=== PATIENT | female | born 1985 | race Caucasian/White ===

== ENCOUNTER 2016-12-06 17:57 | Inpatient (IN) | payer BC ==
[2016-12-06] MEDS ORDERED: PRENATAL-U CAPS1 CAP PO (19:57)
[2016-12-06] MEDS ORDERED: PROBIOTIC1 EAC9 PO (19:57)
[2016-12-06] MEDS ORDERED: VITAMIN C1000 M1 PO (20:14)
[2016-12-06] MEDS ORDERED: VITAMIN D31000 UNI3 PO (20:14)
[2016-12-08] MEDS ORDERED: IBUPROFEN800 M1 PO (10:03)
== END 2016-12-08 12:10 | DRG 775 ==
LOC: LDR 17:57 → OBGE 21:05
PROVIDERS: ADMIT Advanced Practice Midwife
PROC: 10E0XZZ Delivery of Products of Conception, External Approach (ICD-10-PCS; principal; 2016-12-06)
DX: O99.824 Streptococcus B carrier state complicating childbirth (principal); Z37.0 Single live birth; Z3A.39 39 weeks gestation of pregnancy